=== PATIENT | female | born 1950 | race Caucasian/White ===

== ENCOUNTER → 2017-01-24 | Outpatient (CLI) | payer MEDICARE, BC | LOC: MW.CHNEURO 08:00 | PROVIDERS: ATTEND Psychiatry & Neurology Neuromuscular Medicine | DX: M54.2 Cervicalgia (principal); G44.209 Tension-type headache, unspecified, not intractable | CPT/HCPCS: 99214 ==

== ENCOUNTER → 2017-01-31 | Outpatient (CLI) | payer MEDICARE, BC ==
--- NOTE | 2017-02-01 14:37 | MR ---
EXAM DATE: 01/31/17 PATIENT'S AGE: 66 Patient: JELANI LOPEZ Facility: [place], [place] Site . Site : 1950 Study: MRI Spine Cervical [id number]/[id number] 6:22:32 PM Ordering Physician: Cherie Trimble Final Report: Indication: Neck pain. Headaches. Comparison: None. Technique: Sagittal T1, T2, and STIR sequences. Axial T2/gradient sequences. post gadolinium 2 weighted sequences. Findings: Normal vertebral body and facet alignment. No fractures. No vertebral body loss of height. No spondylosis. No ligamentous injury. Normal marrow signal. Normal cord signal. Visualized brainstem and cerebellum appear normal. No abnormal enhancement or enhancing lesions. C2-3: No spinal canal or neural foraminal narrowing. C3-4: Posterior disk bulge a disc osteophyte complex. No narrowing of spinal canal. Mild narrowing of the right neural foramen. No narrowing of the left neural foramen. C4-5: No spinal canal or neural foraminal narrowing. C5-6: Disc degeneration with posterior disc bulge and disc osteophyte complex. No narrowing of spinal canal. Severe right and mild left neural foraminal narrowing. Impingement of the right C6 nerve root. C6-7: Disc degeneration with posterior disc bulge or disk osteophyte complex. No narrowing of spinal canal. Mild right and moderate left neural foraminal narrowing. Possible impingement of the left C7 nerve root C7-T1: No spinal canal or neural foraminal narrowing. No spinal canal or neural foraminal narrowing in the visualized upper thoracic spine. Impression: 1. Normal alignment. No fractures. No spondylolisthesis. 2. Normal cord signal. No abnormal enhancement. 3. Cervical spondylosis 4. At C5-6, severe right and mild left neural foraminal narrowing. Impingement of the right C6 nerve root 5. At C6-7, mild right and moderate left neural foraminal narrowing. Possible impingement of the left C7 nerve root Dictated by Erasmo Corey MD @ Feb 01 2017 2:06PM (Electronic Signature) Report Signed by Proxy. DANIEL
--- NOTE | 2017-02-01 14:37 | MR ---
EXAM DATE: 01/31/17 PATIENT'S AGE: 66 Patient: JELANI LOPEZ Facility: [place], [place] Site . Site : 1950 Study: MRI Head W/ and W/O Cont [id number]/17/2017 6:23:49 PM Ordering Physician: Cherie Trimble Final Report: Indication: Headaches. Comparison: None. Technique: Multiplanar T1, T2, FLAIR and diffusion-weighted imaging. post gamma in 2 weighted sequences. Findings: Normal brain parenchymal morphology. There is a large area of encephalomalacia and gliosis of the right cerebral hemisphere consistent with infarct in the right MCA distribution. There is gyriform pre contrast T1 shortening and susceptibility artifact corresponding with the area of infarction of the right parietal lobe and temporal lobe which likely represents laminar necrosis. Associated ex vacuo dilatation of the right lateral ventricle. Otherwise, normal brain parenchymal morphology. No intracranial hemorrhage. Intracranial vascular flow voids are preserved. No midline shift. Basilar cisterns remain patent. No new restricted diffusion to suggest acute ischemia. No abnormal enhancement or enhancing lesions. Bilateral orbits are unremarkable. Normal appearing sella. Visualized paranasal sinuses and mastoid air cells are unremarkable. Impression: 1. Large area of encephalomalacia gliosis of the right cerebral hemisphere consistent with infarct in the right MCA distribution. There is gyriform precontrast T1 shortening and susceptibility artifact a in the region of infarct of the right parietal and temporal lobe consistent with laminar necrosis. 2. No new restricted diffusion to suggest acute ischemia. 3. No intracranial hemorrhage 4. No abnormal enhancement or enhancing lesions Dictated by Erasmo Corey MD @ Feb 01 2017 2:01PM (Electronic Signature) Report Signed by Proxy. DANIEL
== END ==
LOC: MW.MRI 15:55
PROVIDERS: ATTEND Psychiatry & Neurology Neuromuscular Medicine
DX: M54.2 Cervicalgia (principal); G44.209 Tension-type headache, unspecified, not intractable; I69.398 Other sequelae of cerebral infarction; G93.89 Other specified disorders of brain; M47.812 Spondylosis without myelopathy or radiculopathy, cervical region
CPT/HCPCS: 36415; 70553; 70553-26; 72156; 72156-26; 82565; 84520

== ENCOUNTER 2021-01-20 10:16 | Day surgery (SDC) | payer MEDICARE, BC ==
[~2021-01-20 10:16] MED LIST: Lactated Ringers 1,000 ML IV SCH; Sodium Chloride 0.9% 10 ML SDV IV PRN; Sodium Chloride 0.9% 10 ML Syringe FLUSH PRN; Sodium Chloride 0.9% 2.5 ML Syringe FLUSH PRN; ceFAZolin 2 GM in Premix Bag 1 BAG IV ONE
[2021-01-20] MEDS ORDERED: Lidocaine 2% 5 ML SDV ONE (11:31)
[2021-01-20] MEDS ORDERED: Propofol 200 MG/20 ML SDV ONE ×3 (11:31→14:47)
[2021-01-20] MEDS ORDERED: fentaNYL 100 MCG/2 ML SDV ONE ×2 (11:31→14:37)
--- NOTE | 2021-01-20 12:04 | PCM.PREANE ---
Preanesthetic Assessment - Anesthesia/Transfusion/Family Hx Anesthesia History: Prior Anesthesia Without Reaction Other Type of Anesthesia Reaction Comment: DENIES ANY PROBLEMS WITH ANESTHESIA Family History of Anesthesia Reaction: No Transfusion History: No Prior Transfusion(s) - Review of Systems General: No Symptoms Pulmonary: No Symptoms Cardiovascular: No Symptoms Gastrointestinal: No Symptoms Neurological: No Symptoms Other: Reports: None - Physical Assessment NPO Status Date: 01/20/21 NPO Status Time: 00:01 Vital Signs: Last Vital Signs Temp 97.5 F 01/20/21 11:24 Pulse 61 01/20/21 11:24 Resp 15 01/20/21 11:24 BP 149/67 H 01/20/21 11:24 Pulse Ox 94 L 01/20/21 11:24 Height: 5 ft 5 in Weight: 166 lb ASA Class: 3 Mental Status: Alert & Oriented x3 Airway Class: Mallampati = 2 Dentition: Reports: Normal Dentition ROM/Head Extension: Limited/Partial Lungs: Clear to Auscultation, Normal Respiratory Effort Cardiovascular: Regular Rate, Regular Rhythm - Lab Values: Laboratory Last Values SARS-CoV-2 RNA (REY) NEGATIVE (NEGATIVE) 01/20/21 10:10 - Allergies Allergies/Adverse Reactions: Allergies Allergy/AdvReac Type Severity Reaction Status Date / Time Iodine and Iodide Containing Allergy Shaking Verified 01/14/21 12:22 Produc - Anesthesia Plan Pre-Op Medication Ordered: None - Acknowledgements Anesthesia Type Planned: General Anesthesia Pt an Appropriate Candidate for the Planned Anesthesia: Yes Alternatives and Risks of Anesthesia Discussed w Pt/Guardian: Yes Pt/Guardian Understands and Agrees with Anesthesia Plan: Yes Additional Comments: npo tob quit 1977 etoh none nubia no cv problems CVA 2014 L sided residual L arm/hand weakness seizures started soon after CVA last 2015 on Keppra hayfever edible thc, cbd oil headaches last plavix last Sunday par no questions chronic arthritic pain no narcotics PreAnesthesia Questionnaire HEENT History: Reports: Hard of Hearing, Other (See Below) Other HEENT History: uses reading glasses, has a removable dental retainer to prevent teeth grinding, has right sided hearing aide Cardiovascular History: Reports: High Cholesterol, Hypertension Other Cardiovascular History: has had normal blood pressure since her CVA Respiratory History: Reports: None Gastrointestinal History: Reports: GERD Genitourinary History: Reports: UTI, Recurrent [employer] SALES History: Reports: Musculoskeletal History: Reports: Arthritis, Fracture Other Musculoskeletal History: hx of fx left arm Neurological History: Reports: CVA, Migraines, Seizure Other Neuro History: CVA 5 years ago- has no movement in left arm, reduced movement in left leg (uses a wheelchair). hx of 1 seizure in 2016- none since (takes Keppra) Psychiatric History: Reports: Anxiety Other Psychiatric History: Insomia Endocrine/Metabolic History: Reports: None Hematologic History: Reports: Anticoagulation Therapy Immunologic History: Reports: None Oncologic (Cancer) History: Reports: None Dermatologic History: Reports: Other (See Below) Other Dermatologic History: chronic vaginal irritation - Past Surgical History Head Surgeries/Procedures: Reports: None HEENT Surgical History: Reports: None Cardiovascular Surgical History: Reports: None Respiratory Surgical History: Reports: None GI Surgical History: Reports: Colonoscopy Female Surgical History: Reports: Tubal Ligation Endocrine Surgical History: Reports: None Neurological Surgical History: Reports: None Musculoskeletal Surgical History: Reports: Hip Replacement, ORIF Other Musculoskeletal Surgeries/Procedures:: right DRU, ORIF left upper arm- has hardware Oncologic Surgical History: Reports: None - SUBSTANCE USE Tobacco Use Status *Q: Former Tobacco User Tobacco Use Within Last Twelve Months: No Recreational Drug Use History: No - HOME MEDS Home Medications: Home Meds Baclofen 10 mg PO BID 01/24/16 [History] Clopidogrel [Plavix] 75 mg PO DAILY 01/24/16 [History] Pantoprazole [ProTONIX] 40 mg PO DAILY 01/24/16 [History] Zolpidem [Ambien] 10 mg PO BEDTIME 01/24/16 [History] atorvaSTATin Calcium [Atorvastatin Calcium] 40 mg PO DAILY 01/24/16 [History] Biocleanse 1 cap PO DAILY 01/14/21 [History] Calcium Carbonate/Vitamin D3 [Caltrate 600 Plus D3 Tablet] 1 tab PO DAILY 01/14/21 [History] Cetirizine HCl [Children's Zyrtec Allergy] 10 mg PO DAILY 01/14/21 [History] Clobetasol/Emollient [Temovate E 0.05% Crm] 1 dose TOP BID 01/14/21 [History] Denosumab [Prolia] 60 mg IM ASDIRECTED 01/14/21 [History] Gabapentin/Lidocaine 1 dose TOP ASDIRECTED 01/14/21 [History] Marijuana 5 mg PO BEDTIME 01/14/21 [History] PEG 400/Hypromellose/Glycerin [Artificial Tears Drops] 1 drop EYEBOTH ASDIRECTED PRN 01/14/21 [History] Pregabalin [Lyrica] 100 mg PO TID 01/14/21 [History] Sertraline HCl [Zoloft] 25 mg PO DAILY 01/14/21 [History] Vit A/Vit C/Vit E/Zinc/Copper [Preservision Areds Softgel] 1 cap PO DAILY 01/14/21 [History] levETIRAcetam [Keppra XR] 500 mg PO BID 01/14/21 [History] - CURRENT (IN HOUSE) MEDS Current Meds: Current Medications Lactated Ringer's (Ringers, Lactated) 1,000 mls @ 125 mls/hr IV ASDIRECTED JIA Last Admin: 01/20/21 11:53 Dose: 125 mls/hr Documented by: Sodium Chloride (Sodium Chloride 0.9% 2.5 Ml Syringe) 2.5 ml FLUSH ASDIRECTED PRN PRN Reason: Keep Vein Open Sodium Chloride (Sodium Chloride 0.9% 10 Ml Sdv) 10 ml IV ASDIRECTED PRN PRN Reason: IV Use Sodium Chloride (Sodium Chloride 0.9% 10 Ml Syringe) 10 ml FLUSH ASDIRECTED PRN PRN Reason: Keep Vein Open Discontinued Medications Fentanyl (Fentanyl 100 Mcg/2 Ml Sdv) Confirm Administered Dose 100 mcg .ROUTE .STK-MED ONE Stop: 01/20/21 11:32 Cefazolin Sodium/Dextrose 2 gm (/ Premix) 50 mls @ 100 mls/hr IV ONETIME ONE Stop: 01/17/21 10:34 Lidocaine (Lidocaine 2% 5 Ml Sdv) Confirm Administered Dose 5 ml .ROUTE .STK-MED ONE Stop: 01/20/21 11:32 Propofol (Propofol 200 Mg/20 Ml Sdv) Confirm Administered Dose 400 mg .ROUTE .STK-MED ONE Stop: 01/20/21 11:32
[2021-01-20] MEDS ORDERED: Lidocaine 2% Jelly 30 ML Tube ONE (13:56)
[2021-01-20] MEDS ORDERED: Lidocaine 1% 20 ML MDV ONE (13:56)
[2021-01-20] MEDS ORDERED: Bupivacaine Liposome 1.3% 20 ML SDV INJECT ONE (14:00)
[2021-01-20] MEDS ORDERED: Sodium Chloride 0.9% 20 ML ONE (14:02)
[2021-01-20] MEDS ORDERED: ePHEDrine 50 MG/ML SDV ONE (14:02)
--- NOTE | 2021-01-20 15:59 | PCM.OPNOTE ---
- General Post-Op/Procedure Note Date of Surgery/Procedure: 01/20/21 Operative Procedure(s): Diagnostic colonoscopy with polypectomy, 2 column hemorrhoidectomy Findings: anterior and posterior hemorrhoidal tissue. ascending, cecal and transverse colon polyps Pre Op Diagnosis: Hemorrhoids, diagnostic colonoscopy Post-Op Diagnosis: Posterior and anterior grade IV hemorrhoids, ascending cecal and transverse colon polyps Anesthesia Technique: MAC Primary Surgeon: Kayla Seymour Fluid Replacement, Intraop: 1,300 EBL in mLs: 15 Condition: Good
[2021-01-20] MEDS ORDERED: Acetaminophen/oxyCODONE 325-5 MG Tab PO ONE ×2 (16:23→16:45)
[2021-01-20] MEDS ORDERED: Acetaminophen/oxyCODONE 325-5 MG Tab ONE (16:28)
--- NOTE | 2021-01-20 16:37 | PCM.POSTAN ---
POST ANESTHESIA ASSESSMENT - MENTAL STATUS Mental Status: Alert, Oriented - VITAL SIGNS Vital Signs: Last Vital Signs Temp 36.4 C 01/20/21 15:48 Pulse 74 01/20/21 15:48 Resp 15 01/20/21 15:48 BP 132/60 01/20/21 15:48 Pulse Ox 97 01/20/21 15:48 - RESPIRATORY Respiratory Status: Respiratory Rate WNL, Airway Patent, O2 Saturation Stable - CARDIOVASCULAR CV Status: Pulse Rate WNL, Blood Pressure Stable - GASTROINTESTINAL GI Status: No Symptoms - POST OP HYDRATION Hydration Status: Adequate & Stable
[2021-01-20 16:42] VITALS: BP 130/61; PULSE 63
--- NOTE | 2021-01-20 16:45 | PCM48HPAN ---
Post Anesthesia Note - EVALUATION WITHIN 48HRS OF ANESTHETIC Vital Signs in Normal Range: Yes Patient Participated in Evaluation: Yes Respiratory Function Stable: Yes Airway Patent: Yes Cardiovascular Function Stable: Yes Hydration Status Stable: Yes Pain Control Satisfactory: Yes Nausea and Vomiting Control Satisfactory: Yes Mental Status Recovered: Yes Vital Signs: Last Vital Signs Temp 36.4 C 01/20/21 15:48 Pulse 63 01/20/21 16:20 Resp 15 01/20/21 16:20 BP 130/61 01/20/21 16:20 Pulse Ox 94 L 01/20/21 16:20 - COMMENTS/OBSERVATIONS Free Text/Narrative:: Patient and family came out of room and said they were leaving and patient felt fine.
--- NOTE | 2021-01-21 14:27 | OR ---
SURGEON: KAYLA SEYMOUR MD DATE OF PROCEDURE: 01/20/2021 PREOPERATIVE DIAGNOSES: 1. Grade 4 hemorrhoids. 2. Screening colonoscopy. POSTOPERATIVE DIAGNOSES: 1. Cecal polyp. 2. Ascending colon polyp. 3. Transverse colon polyp. 4. Posterior and anterior grade 4 hemorrhoids. PROCEDURE PERFORMED: 1. Screening colonoscopy with polypectomy. 2. Hemorrhoidectomy x2. PRIMARY SURGEON: Kayla Seymour MD ANESTHESIA: MAC, local. FLUIDS: See anesthesia record. ESTIMATED BLOOD LOSS: 15 mL. INSTRUMENT USED: Olympus colonoscope. EXTENT OF EXAM: To the cecum. PREPARATION: Good. LIMITATIONS: None. FINDINGS: Cecal polyp, ascending colon polyp, and transverse colon polyp. Anterior and posterior grade 4 hemorrhoids. COMPLICATIONS: None. INDICATIONS: The patient is a 70-year-old female who is due for a screening colonoscopy but also complains of bright red bleeding per rectum. On physical exam, she was found to have large grade 4 hemorrhoids. The decision was made to proceed with a screening colonoscopy followed by hemorrhoidectomy. I explained the procedure, expected perioperative course, and risks. The patient verbalized understanding and wishes to proceed. PROCEDURE IN DETAIL: The patient was brought to the OR, placed on the OR cart in the left lateral decubitus position. A time-out was completed verifying the patient's name, age, date of , allergies, and procedure to be performed. Monitored anesthesia care was induced. Continuous oxygen was provided via nasal cannula throughout the procedure. After adequate sedation was achieved, a digital rectal exam was performed. Again, this verified grade 4 hemorrhoids. A well-lubricated colonoscope was inserted into the rectum and advanced under direct visualization to the level of the cecum. The cecum was identified by both visual and anatomic landmarks. A photograph was taken of the cecal cap as well as with the scope retroflexed within the cecum. The scope was then fully withdrawn while examining the color, texture, anatomy, and integrity of the mucosa from the cecum to the anal canal. The patient was found to have sessile polyps in both the cecum, ascending colon, and transverse colon. These were removed in piecemeal fashion using cold biopsy forceps. The scope was brought into the rectum and retroflexed to allow visualization of the anal canal opening. This again confirmed hemorrhoidal disease, and a photograph was taken. The scope was straightened out and fully withdrawn. The buttocks and anus were then prepped and draped in usual standard fashion. I more closely inspected the patient's hemorrhoidal disease. She had a large pedunculated polyp that was located anteriorly. This appeared ulcerated and was likely the source of her bright red bleeding. She also had a large grade 4 hemorrhoid posteriorly. The decision was made to remove these 2 hemorrhoids. The anterior hemorrhoid was addressed first. I grasped this with a Loida clamp and using needle-tip cautery excised it. The mucosal defect was then closed with a 2-0 chromic suture. The anal canal mucosa was closed with a running locking stitch. The anoderm was closed with a simple stitch. This was then brought back and tied upon itself internally. I then turned my attention to the posterior hemorrhoidal column. It was excised in similar fashion. Both hemorrhoids were then sent to Pathology, labeled as hemorrhoidal tissue. I then irrigated the rectum and anal canal with normal saline and suctioned this out. Both suture lines appeared to be hemostatic. I anesthetized the anoderm circumferentially with Exparel. 4x4 gauze pads were placed up against the anoderm, and they were secured in place using mesh underwear. The patient was placed back in supine position and taken to PACU in stable condition. All counts were complete and correct at the end of the case. OZ SUAREZ /[id number]
== END 2021-01-20 16:45 | disposition home or self-care (01) ==
LOC: MW.SDS 10:16
PROVIDERS: ATTEND Surgery
DX: D12.0 Benign neoplasm of cecum (principal); D12.2 Benign neoplasm of ascending colon; D12.3 Benign neoplasm of transverse colon; K64.3 Fourth degree hemorrhoids; K63.89 Other specified diseases of intestine; I10 Essential (primary) hypertension; E78.00 Pure hypercholesterolemia, unspecified; Z86.73 Personal history of transient ischemic attack (TIA), and cerebral infarction without residual deficits; Z88.8 Allergy status to other drugs, medicaments and biological substances; Z79.899 Other long term (current) drug therapy; Z87.891 Personal history of nicotine dependence; Z01.812 Encounter for preprocedural laboratory examination; Z20.822 Contact with and (suspected) exposure to COVID-19
CPT/HCPCS: 45380; 46260; 88304; 88305; A9270; J2704; J3010; J7120; U0002; 00902